=== PATIENT | male | born 1945 | race Caucasian/White ===

== ENCOUNTER 2017-10-06 13:03 | Emergency (ER) | payer MEDICARE ==
[~2017-10-06] VITALS: Ht 182.9 cm; Wt 84.1 kg
[~2017-10-06 13:03] MED LIST: AMBIEN10 MG PO; BAYER CHEWABLE81 MG PO; GLUCOTROL 5 MG T5 MG PO; PLAVIX75 MG PO; POTASSIUM CHLO20 MEQ PO; TRAZODONE HCL50 MG PO; ZOCOR20 MG PO
[2017-10-06 13:07] VITALS: Ht 182.9 cm; Wt 84.1 kg
[2017-10-06 16:39] LABS: BASOPHILS 0.2 % (0-2); EOSINOPHILS 0.7 % (0-7); HEMATOCRIT 45.2 % (42.0-54.0); HEMOGLOBIN 15.6 g/dL (13.5-17.5); IMMATURE GRANULOCYTES 0.1 % (0-5); LYMPHOCYTES 12.9 % (15-50); MCHC 34.5 g/dL (31.0-37.0); MCV 89.9 fL (80.0-100.0); MEAN PLATELET VOLUME 9.2 fL (7.4-10.4); MONOCYTES 4.2 % (2-11); NEUTROPHILS 81.9 % (40-80); PLATELET COUNT 151 10x3/uL (130-400); RBC 5.03 10x6/uL (4.20-6.10); RDW 12.8 % (11.5-14.5); WBC 9.1 10x3/uL (4.8-10.8)
[2017-10-06 16:45] LABS: APPEARANCE CLEAR (CLEAR); BILIRUBIN NEGATIVE (NEGATIVE); COLOR YELLOW (YELLOW); GLUCOSE 50 mg/dL (NEGATIVE); KETONE SMALL mg/dL (NEGATIVE); NITRITE NEGATIVE (NEGATIVE); PH 7.5 (5.0-6.0); PROTEIN TRACE mg/dL (NEGATIVE); UROBILINOGEN NORMAL (NORMAL)
[2017-10-06 16:51] LABS: BACTERIA FEW /hpf (NONE SEEN); EPITHELIAL CELLS RARE /hpf (0-5); HYALINE CAST OCC /lpf (NONE SEEN); RED CELLS - URINE 0-5 /hpf (0-5); WAXY CAST RARE /lpf (NONE SEEN); WHITE CELLS - URINE RARE /hpf (0-5)
[2017-10-06 16:56] LABS: ALBUMIN 3.8 g/dL (3.4-5.0); BILIRUBIN - TOTAL 0.58 mg/dL (0.2-1.3); CALCIUM 10.2 mg/dL (8.5-10.1); CARBON DIOXIDE 28.8 mmol/L (21.0-32.0); CREATININE - SERUM 1.5 mg/dL (0.6-1.3); POTASSIUM - SERUM 4.8 mmol/L (3.5-5.1); PROTEIN - SERUM 7.3 g/dL (6.4-8.2)
[2017-10-06 19:03] VITALS: BP 143/81
== END 2017-10-06 19:04 | disposition home or self-care (01) ==
LOC: D.ER 13:03
PROVIDERS: Family Medicine
DX: I95.1 Orthostatic hypotension (principal); E11.9 Type 2 diabetes mellitus without complications

== ENCOUNTER → 2018-05-22 10:04 | Outpatient (CLI) | payer MEDICARE ==
[2017-10-06 13:07] VITALS: BMI 25.1
--- NOTE | ~2018-05-22 | EC ---
PATIENT:LUCINA GALINDO DATE OF SERVICE: 05/22/18 SEX: M MEDICAL RECORD: [id number] DATE OF : 41 LOCATION:[facility] AGE OF PATIENT: 72 ADMISSION DATE: 05/22/18 REFERRING PHYSICIAN: INTERPRETING PHYSICIAN: MICHAELA PLAZA MD ECHOCARDIOGRAM REPORT ECHO CHARGES 4 ECHO COMPLETE Date: 05/22/18 CLINICAL DIAGNOSIS: H/O CAD/HTN ECHOCARDIOGRAPHIC MEASUREMENTS (adult normal given) AC root (d.<3.7cm) 3.3 cm LV Septum d (<1.2 cm> 1.1 cm Valve Excursion 1.9 cm LV Septum (systole) 1.2 cm Left Atria (s.<4.0cm> 3.5 cm LVPW d(<1.2cm) 1.0 cm RV (d.<2.3cm) 2.7 cm LVPW (sytole) 1.5 cm LV diastole(<5.6CM) 5.1 cm MV E-F(>70mm/sec) cm LV systole 3.9 cm LVOT Diameter 2.1 cm MV exc.(>10mm) cm Est.ejection fraction (50-75%) % DOPPLER: LVIT cm/sec A 62.0 cm/sec E 51.0 cm/sec LA cm/sec RVSP 27.0 mmHg LVOT 103 cm/sec AOP1/2T m/s Asc. Ao 135 cm/sec RVOT 83.0 cm/sec RA cm/sec PA 116 cm/sec AV Gradient Peak 7.3 mmHg AV Mean 3.8 mmHg AV Area 2.4 cm MV Gradient Peak 3.2 mmHg MV Mean 0.94 mmHg MV Area cm COMMENTS: OP - HC Inner Tube Cutter: Tila BURNETTE PATRICIA Staff Counsel: 3 Dr. Robles TAPE# PACS Pericardial Effusion N DATE OF SERVICE: Adequate 2D, color flow, spectral Doppler, and M-mode. No LVH. LV internal dimension is normal. Wall motion is normal. EF is greater than or equal to 55%. Aortic valve is tricuspid. No evidence of stenosis by Doppler interrogation. Left atrium normal at 3.5 cm. Mitral valve shows no prolapse. Trace MR. Right-sided chambers grossly normal. Mild TR. TRANSINT:[id number] Voice Confirmation ID: [id number] DOCUMENT ID: [id number] ECHOCARDIOGRAM REPORT [id number] LUCINA GALINDO GREGORY A MD CC: [id number] DICTATION DATE: 05/23/18 1309 IT ARCHITECTURE CONSULTANT: 05/23/18 1421 DEP CLI 05/22/18 [place] [id number] [place] [id number]
== END | disposition home or self-care (01) ==
LOC: D.HCCARDIO 10:04
PROVIDERS: ATTEND Internal Medicine Interventional Cardiology
DX: I25.10 Atherosclerotic heart disease of native coronary artery without angina pectoris (principal)